=== PATIENT | male | born 1970 | race Caucasian/White ===

== ENCOUNTER 2019-04-06 13:57 | Outpatient (RCR) | payer OTHER | END 2019-04-22 | LOC: PT 13:57 | PROVIDERS: ATTEND Specialist | DX: S46.092A Other injury of muscle(s) and tendon(s) of the rotator cuff of left shoulder, initial encounter (principal); S46.091A Other injury of muscle(s) and tendon(s) of the rotator cuff of right shoulder, initial encounter ==

== ENCOUNTER → 2024-10-20 | Day surgery (SDC) | payer BC ==
[2024-10-17 12:25] LABS: BASOPHILS % 0.6 % (0.0-1.0); EOSINOPHILS # (AUTO) 0.1 (0.0-0.4); EOSINOPHILS % 1.6 % (0.0-6.0); HEMATOCRIT 51.3 % (38.2-49.6); HEMOGLOBIN 17.9 g/dL (14.0-18.0); LYMPHOCYTES # (AUTO) 1.3 (1.0-3.2); LYMPHOCYTES % 26.8 % (18.0-39.1); MEAN CORPUSCULAR HEMOGLOBIN 32.1 pg (28-32); MEAN CORPUSCULAR HGB CONC 34.9 g/dL (31-35); MEAN CORPUSCULAR VOLUME 92.1 fL (81-99); MONOCYTES # (AUTO) 0.4 (0.2-0.8); MONOCYTES % 8.3 % (4.4-11.3); NEUTROPHILS # (AUTO) 3.1 (2.1-6.9); NEUTROPHILS % 62.5 % (38.7-80.0); PLATELET COUNT 220 x10e3/uL (140-360); RED BLOOD COUNT 5.57 x10e6/uL (4.3-5.7); RED CELL DISTRIBUTION WIDTH 12.5 % (11.7-14.4); WHITE BLOOD COUNT 4.96 x10e3/uL (4.8-10.8)
[2024-10-17 12:55] LABS: ANION GAP 16.3 mmol/L (8-16); CALCIUM 9.7 mg/dL (8.4-10.2); CREATININE, SERUM 0.99 mg/dL (0.72-1.25); POTASSIUM 4.3 mmol/L (3.5-5.1)
[~2024-10-20] MED LIST: CLONAZEPAM1 MG PO; FENTANYL CITRATE/PF 100MCG/2 ML INJ ONE; GLYCOPYRROLATE INJ 0.2 MG/ML VIAL ONE; LIDOCAINE HCL 2% LOCAL INJ 5 ML SDV VIAL INJ ONE; MIDAZOLAM HCL 2 MG/2 ML VIAL ONE; ONDANSETRON HCL INJ 2MG/ML 2ML 2 MG/ML VIAL ONE; PROPOFOL IV EMULSION 10 MG/ML 20 ML VIAL ONE
[2024-10-20] MEDS: LACTATED RINGER'S 1,000 ML ONE (06:03)
[2024-10-20] MEDS: CEFAZOLIN SODIUM 2 GM ONE (06:03)
[2024-10-20 08:30] VITALS: TEMP 97.9
[2024-10-20 09:50] VITALS: BP 137/93; PULSE 75; RESP 16; O2SAT 98
== END | disposition home or self-care (01) ==
LOC: OR 05:37
PROVIDERS: ATTEND Podiatrist Foot Surgery
DX: M72.2 Plantar fascial fibromatosis (principal); M24.574 Contracture, right foot; Z01.810 Encounter for preprocedural cardiovascular examination; Z01.812 Encounter for preprocedural laboratory examination; Z01.818 Encounter for other preprocedural examination; Z79.899 Other long term (current) drug therapy
CPT/HCPCS: 27687; 29893; 36415; 71046; 80048; 85025; 93005; J2003; J2250; J2405; J2704; J3010; J7121